=== PATIENT | female | born 1945 | race Hispanic/Latino ===

== ENCOUNTER 2017-07-29 16:19 | Emergency (ER) | payer MEDICARE, OTHER ==
[~2017-07-29] VITALS: Ht 157.5 cm; Wt 56.7 kg
[~2017-07-29 16:19] MED LIST: ALIGN4 MG PO; ARMOUR THYROID PO; ASPIR 8181 MG PO; DICYCLOMINE HCL20 MG PO; DYMISTA NASAL S23 GM; FISH OIL PO; MULTI-VITAMIN1 EACH PO; STOOL SOFTENER PO; TURMERIC PO; VITAMIN B-121000 MCG PO; VITAMIN D PO; VITAMIN E PO
[2017-07-29] MEDS ORDERED: IBUPROFEN 600 MG TAB PO STA (18:02)
[2017-07-29 18:11] VITALS: BP 146/63
== END 2017-07-29 18:15 | disposition home or self-care (01) ==
LOC: FSED 16:19
DX: R07.9 Chest pain, unspecified (principal); M94.0 Chondrocostal junction syndrome [Tietze]; E03.9 Hypothyroidism, unspecified; K21.9 Gastro-esophageal reflux disease without esophagitis; Z85.3 Personal history of malignant neoplasm of breast
CPT/HCPCS: 71046; 80053; 83880; 84484; 85025; 85379; 93005; 99284

== ENCOUNTER → 2017-11-04 | Day surgery (SDC) | payer OTHER ==
[2017-11-02 09:35] LABS: BASOPHILS % 0.5 % (0.0-1.0); EOSINOPHILS # (AUTO) 0.1 (0.0-0.4); EOSINOPHILS % 1.6 % (0.0-6.0); HEMATOCRIT 41.2 % (34.2-44.1); HEMOGLOBIN 13.8 g/dL (12.0-16.0); LYMPHOCYTES # (AUTO) 3.6 (1.0-3.2); LYMPHOCYTES % 44.5 % (18.0-39.1); MEAN CORPUSCULAR HEMOGLOBIN 30.8 pg (28-32); MEAN CORPUSCULAR HGB CONC 33.5 g/dL (31-35); MONOCYTES # (AUTO) 0.5 (0.2-0.8); MONOCYTES % 6.6 % (4.4-11.3); NEUTROPHILS # (AUTO) 3.7 (2.1-6.9); NEUTROPHILS % 46.7 % (38.7-80.0); PLATELET COUNT 374 x10e3/uL (140-360); RED BLOOD COUNT 4.48 x10e6/uL (3.6-5.1); RED CELL DISTRIBUTION WIDTH 12.5 % (11.7-14.4)
[~2017-11-04] MED LIST changes: +ACETAMINOPHEN 1000 MG/100 ML IV ONE; +BUPIVACAINE HCL 0.5% INJ 30 ML VIAL INJ ONE; +CEFAZOLIN SOD 2 GM/D5W 50ML 50 ML IV ONE; +DEXAMETHASONE SOD PHOS INJ 4 MG/ML VIAL ONE; +FENTANYL CITRATE/PF 100MCG/2 ML INJ ONE; +LIDOCAINE HCL 2% LOCAL INJ 5 ML SDV VIAL INJ ONE; +MIDAZOLAM HCL 2 MG/2 ML VIAL ONE; +ONDANSETRON HCL INJ 2 MG/ML VIAL ONE; +PROPOFOL IV EMULSION 10 MG/ML 20 ML VIAL ONE; +SEVOFLURANE INHAL SOLN 250 ML PEN BTL ONE
[2017-11-04 11:00] VITALS: BP 142/76
--- NOTE | 2017-11-10 13:38 | Operative Report ---
DATE OF PROCEDURE: November 04, 2017 PREOPERATIVE DIAGNOSIS: Bilateral carpal tunnel syndrome. POSTOPERATIVE DIAGNOSIS: Bilateral carpal tunnel syndrome. PROCEDURE PERFORMED: Bilateral carpal tunnel releases. MED SPA MANAGER: None. ANESTHESIA: General endotracheal intubation anesthesia. IV FLUIDS: Per the anesthesia record. OPERATIVE PROCEDURE IN DETAIL: Ms. Lopez was taken to the operating room and placed in the supine position on the operating table. Following induction of general anesthesia as well as endotracheal intubation, the patient's right upper extremity was examined under anesthesia. She was found to have normal appearing hands bilaterally. The patient's upper extremities were prepped and draped in the standard surgical fashion. The case was begun by approaching the right carpal tunnel. Incision was created along the thenar palmar crease for the right hand. This incision was carried through skin only. Blunt dissection was used to deepen the incision to the level of the transverse carpal ligament. The transverse carpal ligament was then divided in line with the skin incision. The floor of the carpal canal was then evaluated and found to have no abnormalities. The tourniquet was deflated and hemostasis obtained. The wound was then closed in a single-layer fashion. Attention was then turned to the left carpal tunnel. Incision was created along the thenar palmar crease. This incision was carried through skin only. Blunt dissection was used to deepen the incision to the level of the transverse carpal ligament. The distal edge of the transverse carpal ligament identified. The transverse carpal ligament was then divided in line with the skin incision. The floor of the carpal canal was evaluated and found to have no abnormalities. Tourniquet was deflated and hemostasis obtained prior to closing the wound. The wound was then closed in a single-layer fashion. Sterile dressings were applied to both hands. The patient was then awakened and taken to the postanesthesia care unit in stable condition. Job#: [id number]
== END | disposition home or self-care (01) ==
LOC: OR 06:10
PROVIDERS: ATTEND Specialist
DX: G56.03 Carpal tunnel syndrome, bilateral upper limbs (principal); K21.9 Gastro-esophageal reflux disease without esophagitis; Z88.8 Allergy status to other drugs, medicaments and biological substances
CPT/HCPCS: 36415; 64721; 85025; J1100; J2001; J2250; J2405

== ENCOUNTER 2018-05-03 08:06 | Observation (INO) | payer MEDICARE ==
[~2018-05-03] VITALS: Ht 157.5 cm; Wt 57.6 kg
[~2018-05-03 08:06] MED LIST changes: -ACETAMINOPHEN 1000 MG/100 ML IV ONE; -BUPIVACAINE HCL 0.5% INJ 30 ML VIAL INJ ONE; -CEFAZOLIN SOD 2 GM/D5W 50ML 50 ML IV ONE; +COLACE100 MG PO; -DEXAMETHASONE SOD PHOS INJ 4 MG/ML VIAL ONE; -FENTANYL CITRATE/PF 100MCG/2 ML INJ ONE; +IBUPROFEN400 MG PO; -LIDOCAINE HCL 2% LOCAL INJ 5 ML SDV VIAL INJ ONE; -MIDAZOLAM HCL 2 MG/2 ML VIAL ONE; +OIL OF OREGAN1500 MG PO; +OMEGA 3 FISH O1 EACH PO; -ONDANSETRON HCL INJ 2 MG/ML VIAL ONE; -PROPOFOL IV EMULSION 10 MG/ML 20 ML VIAL ONE; -SEVOFLURANE INHAL SOLN 250 ML PEN BTL ONE; +ULTRAM50 MG PO; +ZYRTEC10 M3 PO
[2018-05-03] MEDS ORDERED: SODIUM CHLORIDE 0.9% 1000ML 1,000 ML IV STA (08:26)
--- NOTE | 2018-05-03 08:36 | NUR ---
Xray at bedside.
--- NOTE | 2018-05-03 08:38 | NUR ---
Xray leaves bedside
[2018-05-03] MEDS ORDERED: MORPHINE SULFATE INJ 4 MG/ML INJ 1ML IV ONE ×2 (09:00→11:30)
[2018-05-03] MEDS ORDERED: ONDANSETRON HCL INJ 2MG/ML 2ML 2 MG/ML VIAL IV ONE ×2 (09:00→11:30)
--- NOTE | 2018-05-03 09:00 | Diagnostic Imaging Report ---
EXAM: CHEST SINGLE (PORTABLE), AP Portable DATE: 05/03/2018 Time stamp on exam: 8:39 AM INDICATION: Fall COMPARISON: 04/26/2018 FINDINGS: LINES/TUBES: None LUNGS: No consolidations or edema. PLEURA: No effusions or pneumothorax. HEART AND MEDIASTINUM: Normal size and contour. BONES AND SOFT TISSUES: No obvious bony fractures. Clips in the left axilla. IMPRESSION: No acute thoracic abnormality. Signed by: Dr. Jmimy Castrejon DO on 05/03/2018 8:57 AM
--- NOTE | 2018-05-03 09:27 | Diagnostic Imaging Report ---
Exam: Right ankle 3 views History: Pain Comparison: None. Findings: Nondisplaced transverse fracture of the distal fibula below the plafond. Soft tissue swelling. Ankle alignment intact. Impression: Nondisplaced transverse fracture of the distal fibula below the plafond. Signed by: Dr. Betito Hurley M.D. on 05/03/2018 9:23 AM
--- NOTE | 2018-05-03 09:31 | Diagnostic Imaging Report ---
EXAMINATION: Head and cervical spine CT without contrast. HISTORY: Status post fall, forehead laceration, head trauma, head and neck pain, unknown LOC COMPARISON: Head CT 04/27/2018 TECHNIQUE: Multidetector axial images were obtained without contrast from the foramen magnum to the vertex and through the cervical spine. The images were reconstructed using brain and bone algorithms. Thin section brain images were reformatted into coronal and sagittal planes. Dose modulation, iterative reconstruction, and/or weight based adjustment of the mA/kV was utilized to reduce the radiation dose to as low as reasonably achievable. HEAD CT FINDINGS: Skull/scalp: No lytic or blastic lesions. Midline for head laceration and right forehead soft tissue swelling/hematoma without underlying fractures. Parenchyma: Normal. No mass, hemorrhage or CT evidence of acute vascular insult. Brain volume: Normal for age. Ventricles: No hydrocephalus or displacement. Arteries: No density suggestive of thrombus. Dural sinuses: No abnormal density. Extra-axial spaces: No abnormal density. Foramen magnum: No mass, Chiari malformation, or basilar invagination. Sella: No obvious mass. Paranasal/mastoid sinuses: Imaged portions unremarkable. CERVICAL SPINE CT FINDINGS: Alignment:Normal alignment and lordosis. Soft tissues: Normal. Vertebrae: Normal height and density. No acute fracture, infection or neoplasm. Degenerative changes: C1-C2: Normal C2-C3: Normal C3-C4: Disc osteophyte compresses admission, bilateral uncovertebral and facet arthrosis. Moderate right foraminal stenosis. C4-C5: Disc osteophyte formation, uncovertebral posterior necrosis minimally in the left. Mild left foraminal stenosis. C5-C6: Disc osteophyte complex formation, bilateral uncovertebral and facet arthrosis. No significant stenosis. C6-C7: Small disc osteophyte formation and bilateral uncovertebral arthrosis. No significant stenosis. C7-T1: Normal IMPRESSION: Head CT: No intracranial abnormalities, particularly no posttraumatic hemorrhage. Unchanged compared to CT 04/27/2018. Cervical spine CT: 1. No acute fractures or dislocations. 2. Chronic degenerative changes as described. Note: Acute post traumatic spinal cord, vascular or ligamentous injury cannot adequately be assessed with CT. Signed by: Dr. Kimberly Abrams M.D. on 05/03/2018 9:28 AM
[2018-05-03] MEDS ORDERED: LIDOCAINE HCL 1% LOCAL INJ 20 ML VIAL ONE (09:45)
[2018-05-03 10:16] LABS: BASOPHILS % 0.3 % (0.0-1.0); EOSINOPHILS % 0.3 % (0.0-6.0); HEMATOCRIT 32.3 % (34.2-44.1); HEMOGLOBIN 10.8 g/dL (12.0-16.0); LYMPHOCYTES # (AUTO) 1.3 (1.0-3.2); LYMPHOCYTES % 9.1 % (18.0-39.1); MEAN CORPUSCULAR HEMOGLOBIN 31.4 pg (28-32); MEAN CORPUSCULAR HGB CONC 33.4 g/dL (31-35); MEAN CORPUSCULAR VOLUME 93.9 fL (81-99); MONOCYTES # (AUTO) 1.2 (0.2-0.8); MONOCYTES % 8.6 % (4.4-11.3); NEUTROPHILS # (AUTO) 11.3 (2.1-6.9); NEUTROPHILS % 81.1 % (38.7-80.0); PLATELET COUNT 439 x10e3/uL (140-360); RED BLOOD COUNT 3.44 x10e6/uL (3.6-5.1); RED CELL DISTRIBUTION WIDTH 12.8 % (11.7-14.4)
[2018-05-03 10:25] LABS: BILIRUBIN,URINE NEGATIVE (NEGATIVE); CLARITY,URINE CLEAR (CLEAR); COLOR,URINE YELLOW (YELLOW); KETONES,URINE NEGATIVE (NEGATIVE); LEUKOCYTE ESTERASE ,URINE NEGATIVE (NEGATIVE); NITRITE,URINE NEGATIVE (NEGATIVE); PROTEIN,URINE DIPSTICK NEGATIVE (NEGATIVE); URINE UROBILINOGEN 0.2 mg/dL (0.2 - 1)
[2018-05-03 10:28] LABS: INR 0.89; PARTIAL THROMBOPLASTIN TIME 30.6 seconds (23.8-35.5); PROTHROMBIN TIME 12.9 seconds (11.9-14.5)
[2018-05-03] MEDS ORDERED: LIDOCAINE 1% W/EPINEPHRINE 20 ML VIAL INJ ONE (10:30)
[2018-05-03 10:34] LABS: BACTERIA,URINE FEW /HPF; EPITHELIAL CELLS,URINE RARE /LPF; WBC,URINE (MAN) 0-5 /HPF (0-5)
[2018-05-03 10:36] LABS: ALANINE AMINOTRANSFERASE 17 IU/L (0-55); ALBUMIN 3.9 g/dL (3.5-5.0); ALBUMIN/GLOBULIN RATIO 1.3 (0.8-2.0); ALKALINE PHOSPHATASE 67 IU/L (40-150); ANION GAP 12.8 mmol/L (8-16); BLOOD UREA NITROGEN 11 mg/dL (7-26); BUN/CREATININE RATIO 14 (6-25); CALCIUM 9.9 mg/dL (8.4-10.2); CARBON DIOXIDE 25 mmol/L (22-29); CHLORIDE 99 mmol/L (98-107); CREATINE KINASE 121 IU/L (29-168); CREATININE, SERUM 0.78 mg/dL (0.57-1.11); EST GLOMERULAR FILTRATION RATE > 60 ML/MIN (60-); GLUCOSE 107 mg/dL (74-118); POTASSIUM 3.8 mmol/L (3.5-5.1); SODIUM 133 mmol/L (136-145)
--- NOTE | 2018-05-03 10:52 | NUR ---
Pt declined to have arteaga catheter removed at this time d/t concerns of mobility with ankle fx. MD notified. Order to leave arteaga in place at this time. Pt education completed on hand hygenine, adele-care with catheter in place & arteaga care. Understanding verbalized.
--- NOTE | 2018-05-03 11:10 | NUR ---
Dr. Hu to bedside. RLE walking boot applied at this time.
[2018-05-03] MEDS ORDERED: KETOROLAC TROMETHAMINE 30 MG/ML VIAL IV STA (12:16)
[2018-05-03] MEDS ORDERED: ONDANSETRON HCL INJ 2MG/ML 2ML 2 MG/ML VIAL IV PRN (12:45)
[2018-05-03] MEDS ORDERED: HYDROMORPHONE 2MG/ML 2 MG/ML ML IV PRN (12:45)
[2018-05-03] MEDS: SODIUM CHLORIDE 0.9% 1000ML 1,000 ML IV SCH (13:20)
[2018-05-03 14:24] VITALS: BP 132/60
[2018-05-03] MEDS ORDERED: CLINDAMYCIN HCL 150 MG CAP PO ONE (15:00)
--- NOTE | 2018-05-03 16:17 | Consultation ---
DATE OF CONSULTATION: REASON FOR CONSULTATION: Syncope. HISTORY OF PRESENT ILLNESS: Ms. Lopez is a 73-year-old lady with past medical history as listed below. Reportedly had a hysterectomy recently. A few hours after hysterectomy in the hospital last week, patient reportedly passed out for less than a minute. She eventually was sent home with an indwelling Wagoner catheter. She was seen by the neurologist. Today at home when walking, patient reportedly passed out and fell down, hurting her head, which required sutures and dayne. She also broke her right ankle. She denies any chest pain, shortness of breath or palpitations prior to the fall. She apparently was a little lightheaded and nauseous. Reportedly has no other significant history. REVIEW OF SYSTEMS CONSTITUTIONAL: Has some fatigue and weakness. HEENT: Has some headache, no blurring of vision, seizures, and syncopal episode. CARDIOVASCULAR: No chest pain, dyspnea, orthopnea, PND. RESPIRATORY: No cough, fever or expectoration. GI: No abdominal pain, vomiting, diarrhea. : No dysuria, frequency, incontinence. ALLERGIES: TETRACYCLINE. MEDICATIONS: See list. PAST MEDICAL HISTORY: No significant past medical history. Has no history of hypertension, diabetes, or coronary artery disease. SOCIAL HISTORY: Does not smoke or drink. FAMILY HISTORY: Noncontributory. PAST SURGICAL HISTORY: Patient had a vaginal hysterectomy on 04/27. PHYSICAL EXAMINATION GENERAL: Moderately built and nourished lady, alert, oriented, not in any obvious distress. VITALS: Heart rate is 84. Blood pressure is 132/60. Respiratory rate 20. Temperature 98.4. HEENT: The patient has a sutured incision on middle of her forehead, extending into anterior scalp. NECK: No JVD, bruit, thyromegaly or lymphadenopathy. CARDIOVASCULAR: First and second heart sounds heard. No murmurs, rubs, or gallops are appreciated. CHEST: Clear to auscultation. ABDOMEN: Soft, nontender. EXTREMITIES: No edema. LABORATORY DATA: CT had no acute intracranial abnormalities. WBC 13.9, hemoglobin 10.8, hematocrit 32.3 platelets of 439. Sodium is 132, potassium 3.8, chloride 99, BUN is 11, creatinine 0.8. Total bili is 1.2, AST is 27, ALT is 17, alk phos is 67. Troponin less than 0.001. No EKG is available. IMPRESSIONS 1. Recurrent syncope. 2. Recent vaginal hysterectomy. PLANS 1. Follow cardiac enzymes. 2. Get echocardiogram to assess LV function, valvular function. 3. Carotid Doppler to rule out significant stenosis. 4. Check orthostatic blood pressure. 5. Due to recurrent episodes of syncope, we discussed with patient about possible implantable loop recorder placement. Patient wants to think about this. She has been explained the procedure risks, benefits, complications, alternatives. As always, I appreciate and thank you very much for your referrals. Job#: [id number] DILLON
[2018-05-03] MEDS: DOCUSATE SODIUM 100 MG CAP PO SCH (17:00)
[2018-05-03 18:02] VITALS: BP 132/60
[2018-05-03 19:01] LABS: CREATINE KINASE 97 IU/L (29-168)
[2018-05-03 19:24] LABS: THYROID STIMULATING HORMONE 2.421 uIU/mL (0.350-4.940)
[2018-05-03 20:00] VITALS: BP 121/57
[2018-05-03] MEDS: HYDROCODONE/APAP 5MG-325MG TAB PO PRN (20:06)
[2018-05-03] MEDS: CLINDAMYCIN HCL 150 MG CAP PO SCH (21:47)
[2018-05-03 22:08] VITALS: BP 121/57
--- NOTE | 2018-05-03 23:41 | History and Physical ---
PRIMARY CARE PHYSICIAN: Tushar Butts MD SCHOOL GUIDANCE COUNSELOR: Nicanor Barraza MD CHIEF COMPLAINT: Status post syncopal episode. HISTORY OF PRESENT ILLNESS: The patient is a pleasant 73-year-old female, recently had hysterectomy. The patient had orthostasis hypotension one time while she was in the hospital prior to discharge. Recently, she was discharged on April 28, approximately 5 days ago. She was doing really well at home; however, today apparently, she was walking from her room to the stair, had a flushing kind of feeling, not chest pain or shortness of breath. The patient felt like she needs to rest, so she stopped by the window, tried to bend down, but felt lightheadedness and then subsequently passed out and hit her head on the floor. The patient had a long laceration in the forehead area. The patient is otherwise stable. She is completely coherent. She could not remember the passing out, but when she woke up, she was not confused. The patient was otherwise stable. PAST MEDICAL HISTORY: Left breast cancer in remission. Status post vaginal hysterectomy and urinary bladder suspension. Cholecystectomy, tonsillectomy, hiatal hernia repair, bilateral tubal ligation, bilateral bunionectomy, bilateral cataract surgery, mastectomy bilaterally, and carpal tunnel surgery bilaterally. SOCIAL HISTORY: The patient does not smoke or use alcohol. No recreational drugs. ALLERGIES: TETRACYCLINE. MEDICATIONS: Home medication list is reviewed. REVIEW OF SYSTEMS: Headache now because of the laceration, status post suture in place. PHYSICAL EXAMINATION: VITAL SIGNS: Temperature is 98, blood pressure 132/60, pulse rate 84, and respirations 20. GENERAL: The patient is not in acute distress. She is awake. HEENT: Laceration to the forehead, status post suture placement. There is no open wound. Laceration repair noticed. NECK: Supple. PULMONARY: Clear. CARDIOVASCULAR: Regular rate and rhythm. ABDOMEN: Soft and unremarkable. EXTREMITIES: No gross cyanosis or edema. NEUROLOGIC: No gross focal deficit. LABORATORY DATA: Chemistry; sodium is 133, potassium 3.8, chloride 99, bicarb 25, BUN is 11, creatinine 0.7, and glucose is 107. WBC is 13.9, hemoglobin 10.8, hematocrit 32.3, and platelets 439. IMPRESSION: 1. Syncopal episode. 2. Laceration to forehead, status post repair, suturing. 3. Possible orthostasis hypotension, resulting in fall. 4. Reactive leukocytosis and high platelets. PLAN: Continue with home medication, pain control. Telemetry. Consultation with Dr. Barraza. We will give the patient clindamycin for now. Continue with home medication with some adjustment. PT/OT. Observation. MD IRINEO Haddad/BHAVANA /[id number]
[2018-05-04] VITALS: BP 160/61
[2018-05-04 00:23] LABS: CREATINE KINASE 84 IU/L (29-168)
[2018-05-04] MEDS: SODIUM CHLORIDE 0.9% 1000ML 1,000 ML IV SCH (01:15)
[2018-05-04] MEDS: HYDROCODONE/APAP 5MG-325MG TAB PO PRN ×3 (03:48→15:54)
[2018-05-04 04:00] VITALS: BP 143/67
[2018-05-04 05:22] LABS: BASOPHILS % 0.4 % (0.0-1.0); EOSINOPHILS # (AUTO) 0.2 (0.0-0.4); EOSINOPHILS % 2.9 % (0.0-6.0); HEMATOCRIT 25.3 % (34.2-44.1); HEMOGLOBIN 8.2 g/dL (12.0-16.0); LYMPHOCYTES # (AUTO) 2.1 (1.0-3.2); MEAN CORPUSCULAR HEMOGLOBIN 31.4 pg (28-32); MEAN CORPUSCULAR HGB CONC 32.4 g/dL (31-35); MEAN CORPUSCULAR VOLUME 96.9 fL (81-99); MONOCYTES # (AUTO) 0.7 (0.2-0.8); MONOCYTES % 9.9 % (4.4-11.3); NEUTROPHILS # (AUTO) 4.4 (2.1-6.9); NEUTROPHILS % 58.3 % (38.7-80.0); PLATELET COUNT 374 x10e3/uL (140-360); RED BLOOD COUNT 2.61 x10e6/uL (3.6-5.1); RED CELL DISTRIBUTION WIDTH 13.4 % (11.7-14.4)
[2018-05-04 05:48] LABS: CREATINE KINASE 80 IU/L (29-168)
[2018-05-04] MEDS: CLINDAMYCIN HCL 150 MG CAP PO SCH ×2 (06:03→14:01)
[2018-05-04 06:09] LABS: ANION GAP 8.1 mmol/L (8-16); BLOOD UREA NITROGEN 10 mg/dL (7-26); BUN/CREATININE RATIO 14 (6-25); CALCIUM 8.2 mg/dL (8.4-10.2); CARBON DIOXIDE 24 mmol/L (22-29); CHLORIDE 108 mmol/L (98-107); CREATININE, SERUM 0.72 mg/dL (0.57-1.11); EST GLOMERULAR FILTRATION RATE > 60 ML/MIN (60-); GLUCOSE 105 mg/dL (74-118); POTASSIUM 4.1 mmol/L (3.5-5.1); SODIUM 136 mmol/L (136-145)
[2018-05-04 07:40] VITALS: BP 110/55
[2018-05-04] MEDS: DOCUSATE SODIUM 100 MG CAP PO SCH ×2 (08:22→17:18)
[2018-05-04 08:42] VITALS: BP 110/55
[2018-05-04] MEDS ORDERED: LORATADINE 10 MG TAB PO SCH (09:00)
[2018-05-04] MEDS ORDERED: MULTIVITAMINS/MINERALS TAB PO SCH (09:00)
--- NOTE | 2018-05-04 11:00 | NUR ---
Wagoner cath removed at this time.
--- NOTE | 2018-05-04 11:16 | NUR ---
Pt ambulating in hallway with walker and walking boot in place, assisted by PT.
[2018-05-04 11:37] VITALS: BP 134/65
--- NOTE | 2018-05-04 14:22 | NUR ---
Nutrition Screen Note RD Recommendation for Physician: -Continue regular diet as ordered Plan of Care: RD following, monitoring for tolerance and adequacy Nutrition reason for involvement: Nutrition Risk Trigger MST Primary Diagnose(s): 1. Syncopal episode. 2. Laceration to forehead, status post repair, suturing. 3. Possible orthostasis hypotension, resulting in fall. PMH: None Ht: 62in Wt: 127.06lb BMI: 23.2kg/m2 IBW: 110lb RD Assessment: (05/04) Chart reviewed. Labs and meds reviewed. 73yo F, who was admitted s/p fall. Visited pt in room who denied significant wt loss, denied decrease in appetite FORGING PRESS SETTER UP. Pt denied chewing/swallowing problems and nausea/vomiting. RN recorded 100% meal intake since admission. LBM 05/03. Will continue to monitor and follow. Current Diet: regular diet Malnutrition Evaluation (date of eval) The patient does not meet criteria for a specified degree of malnutrition at this time. Will re-evaluate at follow-up as appropriate. Diet Education Needs Assessment: Diet education not indicated. Nutrition Care Level: low Signed: Christy Rogers, MS, RD, LD
[2018-05-04 15:33] VITALS: BP 161/70
--- NOTE | 2018-05-04 15:48 | NUR ---
ORDER RECEIVED FOR [facility] FOR SN AND PT/OT. MET W THE PT AT THE BEDSIDE. PT STATES SHE WOULD LIKE AN IN NETWORK PROVIDER. PT CHOSE [facility]. CHOICE LETTER WAS SIGNED BY PT. COPY TO PT AND COPY TO THE CHART. REFERRAL WAS SENT TO [facility] @ OFF: [phone] / FAX: [phone]. CALL WAS RECEIVED VERIFYING PT HAD BEEN ACCEPTED.
--- NOTE | 2018-05-04 15:51 | NUR ---
HOME HEALTH DISCHARGE NOTE PATIENT ADDRESS WHERE SERVICE WILL BE RECEIVED: [address] [place] [id number] PATIENT CONTACT NUMBER: [phone] NAME OF HOME HEALTH COMPANY: [facility] TELEPHONE/FAX NUMBER OF COMPANY: OFF: [phone] / FAX: [phone] ADDRESS OF COMPANY: [address] [place] [address] [id number], [place] [address] SERVICES TO RECEIVE: SN/PT/OT ( [facility] PROVIDER BY HOSPITAL ) ANTICIPATED DATE SERVICES WILL BEGIN: 05/05/2018 Please call the company above if you have not received a call to schedule a home visit within 24 hours of discharge.
== END 2018-05-04 18:56 | disposition home or self-care (01) ==
LOC: ER 08:06 → ERHOLD 13:00 → IMCU 14:12
PROVIDERS: ADMIT Internal Medicine; ATTEND Internal Medicine
DX: S01.01XA Laceration without foreign body of scalp, initial encounter (principal); S01.81XA Laceration without foreign body of other part of head, initial encounter; W01.119A Fall on same level from slipping, tripping and stumbling with subsequent striking against unspecified sharp object, initial encounter; Y93.01 Activity, walking, marching and hiking; Y92.018 Other place in single-family (private) house as the place of occurrence of the external cause; S82.61XA Displaced fracture of lateral malleolus of right fibula, initial encounter for closed fracture; R55 Syncope and collapse; Z85.3 Personal history of malignant neoplasm of breast; Z90.49 Acquired absence of other specified parts of digestive tract; Z90.710 Acquired absence of both cervix and uterus; D72.829 Elevated white blood cell count, unspecified
CPT/HCPCS: 12004; 36415; 70450; 71045; 72125; 73610; 80048; 80053; 81001; 82550 ×2; 82553 ×2; 84443; 84484 ×2; 85025 ×2; 85610; 85730; 93005 ×2; 93306; 93880; 97116; 97162; 99284; G0378 ×2; J1885; J2001; J2270; J2405; J7030 ×2

== ENCOUNTER 2020-03-05 10:14 | Emergency (ER) | payer MEDICARE ==
[~2020-03-05] VITALS: Ht 157.5 cm; Wt 56.9 kg
[2020-03-05] MEDS ORDERED: KETOROLAC TROMETHAMINE 30 MG/ML VIAL IV STA (10:57)
[2020-03-05] MEDS ORDERED: FAMOTIDINE 20 MG/2 ML VIAL IV STA (10:57)
[2020-03-05] MEDS ORDERED: DONNATAL/LIDOCAINE/MAALOX 30 ML SUSP PO ONE (11:00)
[2020-03-05] MEDS ORDERED: PANTOPRAZOL 40MG/SOD CHL 0.9% 50 ML IV SCH (11:00)
[2020-03-05] MEDS ORDERED: MAGNESIUM/ALUMINUM/SIMETHICONE 30 ML UDC ONE (11:32)
[2020-03-05] MEDS ORDERED: PANTOPRAZOL 40MG/SOD CHL 0.9% 50 ML IV ONE (11:32)
[2020-03-05] MEDS ORDERED: BELLADONNA ALK/PHENOBARBITAL 5 ML UDC ONE (11:32)
[2020-03-05] MEDS ORDERED: KETOROLAC TROMETHAMINE 30 MG/ML VIAL ONE (11:32)
[2020-03-05] MEDS ORDERED: LIDOCAINE VISC 2% SOLN 15 ML UDC ONE (11:32)
[2020-03-05] MEDS ORDERED: FAMOTIDINE 20 MG/2 ML VIAL IV ONE (11:33)
[2020-03-05] MEDS ORDERED: ASPIRIN 325 MG TAB PO ONE (13:00)
[2020-03-05 15:36] VITALS: BP 142/69
== END 2020-03-05 16:04 | disposition home or self-care (01) ==
LOC: FSED 11:05
DX: M53.3 Sacrococcygeal disorders, not elsewhere classified (principal); R07.9 Chest pain, unspecified; K21.9 Gastro-esophageal reflux disease without esophagitis; K44.9 Diaphragmatic hernia without obstruction or gangrene; Z91.14 Patient's other noncompliance with medication regimen
CPT/HCPCS: 36415; 71046; 80053; 82553; 84484; 85025; 93005; 96374; 96375; 99283; J1885

== ENCOUNTER 2020-10-30 23:46 | Emergency (ER) | payer MEDICARE ==
[~2020-10-30] VITALS: Ht 157.5 cm; Wt 56.7 kg
[2020-10-31] MEDS ORDERED: FAMOTIDINE 20 MG/2 ML VIAL IV STA (01:28)
[2020-10-31] MEDS ORDERED: DONNATAL/LIDOCAINE/MAALOX 30 ML SUSP PO ONE (01:30)
[2020-10-31] MEDS ORDERED: LIDOCAINE VISC 2% SOLN 15 ML UDC PO ONE (01:45)
[2020-10-31] MEDS ORDERED: BELLADONNA ALK/PHENOBARBITAL 5 ML UDC PO ONE (01:45)
[2020-10-31] MEDS ORDERED: MAGNESIUM/ALUMINUM/SIMETHICONE 30 ML UDC PO ONE (01:45)
[2020-10-31] MEDS ORDERED: FAMOTIDINE 20 MG TAB PO ONE (02:00)
== END 2020-10-31 03:15 | disposition home or self-care (01) ==
LOC: FSED 10-31 00:50
DX: R07.9 Chest pain, unspecified (principal); R10.13 Epigastric pain; K21.9 Gastro-esophageal reflux disease without esophagitis; R94.31 Abnormal electrocardiogram [ECG] [EKG]
CPT/HCPCS: 71046; 80048; 80076; 81003; 82553; 84484; 85025; 93005; 99283